=== PATIENT | female | born 1980 | race Caucasian/White ===

== ENCOUNTER → 2016-04-08 | Outpatient (CLI) | payer OTHER ==
[~2016-04-08] MED LIST: MTR600X PO; OXYC-57 PO; PRENTAB PO
== END | disposition home or self-care (01) ==
LOC: C.CPL 13:44
PROVIDERS: ATTEND Obstetrics & Gynecology
DX: O09.899 Supervision of other high risk pregnancies, unspecified trimester (principal); Z3A.00 Weeks of gestation of pregnancy not specified

== ENCOUNTER → 2016-04-21 | Outpatient (CLI) | payer OTHER ==
[2016-04-24 23:27] LABS: PARVOVIRUS IgG INDEX 4.3 (<0.9); PARVOVIRUS IgM INDEX 0.1 (<0.9)
== END | disposition home or self-care (01) ==
LOC: C.LAB1850 10:13
PROVIDERS: ATTEND Obstetrics & Gynecology
DX: Z20.828 Contact with and (suspected) exposure to other viral communicable diseases (principal)

== ENCOUNTER → 2016-05-20 | Outpatient (CLI) | payer OTHER ==
[2016-05-20 11:14] LABS: HEMATOCRIT 34.9 % (37-47)
[2016-05-20 11:43] LABS: GTGD 50 Grams
[2016-05-20 13:41] LABS: URINE APPEARANCE CLEAR (CLEAR); URINE BILIRUBIN NEG (NEG); URINE COLOR YELLOW; URINE NITRITE NEG (NEG); URINE PH 6.5 (4.5-7.5); URINE SPECIFIC GRAVITY 1.012 (1.000-1.030); UROBILINOGEN NEG (NEG)
[2016-05-20 13:50] LABS: MANUAL MICROSCOPIC REQUIRED? NO; REVIEW REQ? NO
== END | disposition home or self-care (01) ==
LOC: C.LAB1850 09:40
PROVIDERS: ATTEND Obstetrics & Gynecology
DX: O09.43 Supervision of pregnancy with grand multiparity, third trimester (principal)

== ENCOUNTER → 2016-05-24 | Outpatient (CLI) | payer OTHER | END | disposition home or self-care (01) | LOC: C.LAB 07:44 | PROVIDERS: ATTEND Obstetrics & Gynecology | DX: O28.9 Unspecified abnormal findings on antenatal screening of mother (principal) ==

== ENCOUNTER → 2016-07-15 | Outpatient (CLI) | payer OTHER | END | disposition home or self-care (01) | LOC: C.LABSPEC 10:53 | PROVIDERS: ATTEND Obstetrics & Gynecology | DX: O09.43 Supervision of pregnancy with grand multiparity, third trimester (principal); Z3A.00 Weeks of gestation of pregnancy not specified ==